=== PATIENT | female | born 1960 | race Caucasian/White ===

== ENCOUNTER → 2017-02-04 | Outpatient (CLI) | payer OTHER ==
[~2017-02-04] MED LIST: PRILOSEC PO
--- NOTE | ~2017-02-04 | MY25 ---
[facility] A Service of [facility] RADIOLOGY TEXT RESULTS PATIENT: NICOLA CHRISTIAN LOCATION: [facility] : 56 UNIT #: [id number] AGE: [address]: Jared Gonzalez MD SEX: F ORDER DR: [id number] [facility] [address]. [place], [place] [address] [id number] O MR#: [id number] Acc #: [id number] NAME: NICOLA CHRISTIAN : 1960 SEX: F STUDY DATE/TIME: 02/04/2017 8:19 UNIT: [facility] ROOM: STUDY DESCRIPTION: LUCÍA TURPIN W/ BRODY UNI RT Attending Physician: Jared Gonzalez M.D. Referring Physician: Jared Gonzalez M.D. Ordering Physician: Jared Gonzalez M.D. Primary Care Physician: Jared Gonzalez M.D. MEDICAL IMAGING REPORT This report is preliminary unless electronic signature is present EXAM Unilateral right digital diagnostic mammogram with CAD 02/04/2017 INDICATION 57-year-old female presenting for 6-month followup of a probably benign asymmetry in the medial hemisphere right breast. Family history of breast cancer in the patient's sister at age 60. No personal history. TECHNIQUE Compression CC, full field CC, MLO and true lateral views of the right breast were obtained and reviewed with an FDA-approved CAD device. COMPARISON 07/04/2016, 06/20/2016. FINDINGS The faint nodular asymmetry in the medial hemisphere right breast measuring about 7 mm has not significantly changed for technical factors. Ultrasound was previously performed of the right breast in this area and was negative and given stability mammographically and lack of an ultrasound correlate repeat ultrasound was not thought to offer additional diagnostic benefit and therefore was not performed. There is no new dominant nodule, mass or suspicious cluster of microcalcifications. Scattered fibroglandular densities in the right breast not significantly changed for technical factors. Absent new or worsening symptoms in either breast, the patient should return for a bilateral mammogram in 1 year to document 1 year of stability. These findings and recommendations were discussed with the patient and she voiced understanding and agreement. IMPRESSION The probably benign nodular asymmetry in the medial hemisphere right STS. [facility] A Service of [facility] RADIOLOGY TEXT RESULTS PATIENT: NICOLA CHRISTIAN LOCATION: [facility] : 56 UNIT #: [id number] AGE: [address]: Jared Gonzalez MD SEX: F ORDER DR: breast is unchanged over the past 6 months and remains probably benign. Suggest a bilateral diagnostic mammogram in June 2017 to document 1 year of stability. See suspicion above. Patients over the age of 40 are entered into a reminder system with target due date for the next mammogram. A result letter will also be sent to the patient. BIRADS: 3 Probably benign finding; short interval followup suggested Dictated by... Phani Lal M.D. THIS IS AN ELECTRONICALLY VERIFIED REPORT Phani Lal M.D. at 02/04/2017 11:27 AM ANDREW/claude TD: 02/04/2017 09:47 JOB #: [id number] MEDICAL IMAGING REPORT Page 1 of 1 COPY
== END | disposition home or self-care (01) ==
LOC: CMAM 08:00
DX: R92.8 Other abnormal and inconclusive findings on diagnostic imaging of breast (principal)
CPT/HCPCS: G0206